=== PATIENT | female | born 1980 | race Caucasian/White ===

== ENCOUNTER 2024-03-05 19:32 | Emergency (ER) | payer MEDICAID ==
[~2024-03-05] VITALS: Ht 149.9 cm; Wt 77.6 kg
[2024-03-05 20:24] VITALS: BP 140/68; PULSE 95; RESP 18; TEMP 99.5; O2SAT 99
[2024-03-05] MEDS ORDERED: BENZ200C4 PO (21:51)
[2024-03-05] MEDS ORDERED: DOXY-487 PO (21:51)
[2024-03-05] MEDS ORDERED: IBUP-2213 PO (21:54)
[2024-03-06] MEDS ORDERED: LEVO750T75 PO (16:22)
[2024-03-06] MEDS ORDERED: ONDA-188 PO (16:22)
== END 2024-03-05 21:56 | disposition home or self-care (01) ==
LOC: MED 19:32
DX: J18.8 Other pneumonia, unspecified organism (principal); I10 Essential (primary) hypertension; Z79.1 Long term (current) use of non-steroidal anti-inflammatories (NSAID); Z79.2 Long term (current) use of antibiotics; Z79.899 Other long term (current) drug therapy; Z88.0 Allergy status to penicillin
CPT/HCPCS: 71045; 99283

== ENCOUNTER 2024-03-06 14:47 | Emergency (ER) | payer MEDICAID ==
[~2024-03-06] VITALS: Ht 149.9 cm; Wt 63.5 kg
[~2024-03-06 14:47] MED LIST: BENZ200C4 PO; DOXY-487 PO; IBUP-2213 PO
[2024-03-06 15:08] VITALS: BP 128/71; PULSE 77; RESP 18; TEMP 98.9; O2SAT 96
[2024-03-06] MEDS: ONDANSETRON 4 MG ODT PO ONE (15:50)
[2024-03-06] MEDS: levoFLOXacin 750 MG TAB PO ONE (15:51)
[2024-03-06] MEDS ORDERED: LEVO750T75 PO (16:22)
[2024-03-06] MEDS ORDERED: ONDA-188 PO (16:22)
== END 2024-03-06 16:30 | disposition home or self-care (01) ==
LOC: MED 14:47
DX: J18.9 Pneumonia, unspecified organism (principal); T36.4X5A Adverse effect of tetracyclines, initial encounter; I10 Essential (primary) hypertension; Z79.1 Long term (current) use of non-steroidal anti-inflammatories (NSAID); Z79.2 Long term (current) use of antibiotics; Z79.899 Other long term (current) drug therapy; Z88.0 Allergy status to penicillin; Y92.89 Other specified places as the place of occurrence of the external cause
CPT/HCPCS: 99283; Q0162